=== PATIENT | male | born 1985 | race Caucasian/White ===

== ENCOUNTER 2021-06-17 17:00 | Emergency (ER) | payer OTHER, SELFPAY ==
--- NOTE | ~2021-06-17 | XR_ITS ---
EXAMINATION: XR chest 1V portable EXAM DATE: 06/17/2021 17:29 INDICATION: Cough and shortness of breath. TECHNIQUE: Portable AP frontal chest x-ray was obtained. There is no prior study for comparison. FINDINGS: Equivocal ill-defined airspace disease, can't exclude early COVID pneumonia. No confluent c onsolidation, pneumothorax or pleural effusion suspected. Cardiomediastinal silhouette is normal. The re are no osseous abnormalities identified. IMPRESSION: Equivocal ill-defined bilateral airspace disease. Reviewed, dictated and finalized at location A. EN EXAMINER
[2021-06-17 17:04] VITALS: BP 103/63; PULSE 118; RESP 20; TEMP 36.7; O2SAT 98
[2021-06-17 17:49] LABS: Add Urine Microscopic? NO; Appearance Urine Clear (Clear); Bilirubin Urine Negative (Negative); Blood Urine Negative (Negative); Color Urine Yellow (Yellow); Glucose Urine UA Negative (Negative); Ketones Urine Negative (Negative); Leukocyte Esterase Ur Negative LEU/UL (Negative); Nitrate Urine Negative (Negative); Protein Urine Negative (Negative); Specific Grav Ur 1.009 (1.001-1.035); Urobilinogen Urine Negative mg/dL (<2.0)
[2021-06-17 18:01] LABS: Alveolar/Arterial O2 Gradient 16.4 mmHg; Base Excess ABG 0.6 mEq/l (+/-2.0); Device ROOM AIR; Fractional Inspired Oxygen 21 %; HCO3 ABG 24.1 mEq/l (22.0-26.0); Modified Allen's Test Pass; Oxygen Content ABG 20.4 %vol (16.0-22.0); Oxygen Saturation ABG 97.3 % (95.0-100.0); Oxyhemoglobin 92.4 % THb (90.0-100.0); PCO2 ABG 35.4 mmHg (35.0-45.0); PO2 ABG 90.9 mmHg (80.0-100.0); PO2 FiO2 Ratio Arterial Blood 4.33 %; Site Drawn RIGHT RADIAL; Total Hemoglobin 15.7 g/dL (12.0-18.0)
--- NOTE | 2021-06-17 18:19 | ED.GENADULT ---
HPI - General Adult General Chief complaint: Upper Respiratory Infection Stated complaint: sob Time Seen by Provider: 06/17/21 17:38 Source: patient Mode of arrival: ambulatory Limitations: no limitations History of Present Illness HPI narrative: Patient complaining of general body aches, not feeling well, slight sore throat started 4 to 5 days ago. Tested negative for Covid today. Patient's and child tested positive for Covid 1 day prior to the beginning of his symptoms. Patient also complaining of burning urination. Patient is not vaccinated for COVID-19 Related Data Allergies Allergy/AdvReac Type Severity Reaction Status Date / Time diphenhydramine Allergy Unknown Verified 06/17/21 17:24 [From [facility]] Review of Systems Review of Systems: CONSTITUTIONAL: Denies fever, chills, or sweats. EYES: Denies visual changes, redness, or discharge. ENT: Denies rhinorrhea, congestion, sore throat, or otalgia. CARDIOVASCULAR: Denies chest pain, palpitations, or edema. RESPIRATORY: Denies cough or dyspnea. GASTROINTESTINAL: Denies abdominal pain, nausea, vomiting, or diarrhea. GENITOURINARY: Denies dysuria or hematuria. SKIN: Denies rash or itching. MUSCULOSKELETAL: Denies back pain, joint pain, or myalgia. NEUROLOGIC: Denies headache, numbness, or weakness. PSYCHIATRIC: Denies anxiety or depression. Exam Narrative: General appearance: Well-developed, well-nourished Skin: Normal color Head: Normocephalic, nontraumatic Eyes: Clear conjunctiva ENT: Oropharynx normal, ears normal, nose normal Neck: Supple, nontender Chest and respiratory: Airway patent, no respiratory distress, no accessory muscle use Heart: Regular rate/rhythm Abdomen: Soft, nontender, no organomegaly, quiet bowel sounds Vascular: Normal peripheral pulses, normal capillary refill. Musculoskeletal: Normal range of motion, nontender back Neurologic: Alert and oriented ?3, [employer] is normal as tested, no gross motor deficit Course Course Emergency Course: Stable Vital Signs Vital signs: Vital Signs Temperature 36.7 C 06/17/21 17:04 Pulse Rate 118 H 06/17/21 17:04 Respiratory Rate 20 06/17/21 17:04 Blood Pressure 103/63 06/17/21 17:04 Pulse Oximetry 98 06/17/21 17:04 Temperature 36.7 C 06/17/21 17:04 Pulse Rate 118 H 06/17/21 17:04 Respiratory Rate 20 06/17/21 17:04 Blood Pressure 103/63 06/17/21 17:04 Pulse Oximetry 98 06/17/21 17:04 Medical Decision Making MDM Narrative Medical decision making narrative: Although patient tested negative for Covid today. But his and child are positive. I believe patient is false negative test today. Patient symptoms very much match with Covid infection. Covid test ordered. Chest x-ray, blood gas on room air and UA. Work-up showed no acute abnormalities. Patient is well oxygenated on room air, clean urine, patient will be discharged to remain isolated at home until he get the Covid test result. Vital Signs Vital Signs: Vital Signs Temperature 36.7 C 06/17/21 17:04 Pulse Rate 118 H 06/17/21 17:04 Respiratory Rate 20 06/17/21 17:04 Blood Pressure 103/63 06/17/21 17:04 Pulse Oximetry 98 06/17/21 17:04 Temperature 36.7 C 06/17/21 17:04 Pulse Rate 118 H 06/17/21 17:04 Respiratory Rate 20 06/17/21 17:04 Blood Pressure 103/63 06/17/21 17:04 Pulse Oximetry 98 06/17/21 17:04 Lab Data Labs: Lab Results 06/17/21 Range/Units 17:26 Urine Color Yellow (Yellow) Urine Appearance Clear (Clear) Urine pH 7.0 (5.0-9.0) Ur Specific [place] 1.009 (1.001-1.035) Urine Protein Negative (Negative) mg/dL Urine Glucose (UA) Negative (Negative) mg/dL
--- NOTE | 2021-06-17 18:56 | PC.NURSE ---
Pt declined COVID swab. Informed charge nurse
== END 2021-06-17 18:58 | disposition home or self-care (01) ==
PROVIDERS: Emergency Provider Emergency Medicine
DX: B34.9 Viral infection, unspecified (principal); Z20.822 Contact with and (suspected) exposure to COVID-19
CPT/HCPCS: 36600; 71045; 81003; 82805; 99283